=== PATIENT | male | born 1955 | race Caucasian/White ===

== ENCOUNTER → 2017-07-26 | Day surgery (SDC) | payer OTHER ==
[~2017-07-26] MED LIST: BUPIVACAINE HCL PF 0.25% 30 ML VIAL ONE; BUPIVACAINE HCL PF 0.75% 30 ML VIAL ONE; LACTATED RINGER'S 1000 ML INJ 1,000 ML ONE; LIDOCAINE 1.5%/EPINEPHrine 1:200,000 PF SOLN 30 ML AMP ONE; MEPERIDINE HCL 25 MG/ML VIAL ONE; MIDAZOLAM HCL 5 MG/ML VIAL (1 ML) ONE; MORPHINE SULFATE 4 MG/ML INJ ONE; ONDANSETRON HCL 4 MG/2 ML VIAL IV PUSH ONE; PROPOFOL 200 MG/20 ML AMP IV ONE; ceFAZolin 2 GM PREMIX 50 ML ONE
--- NOTE | 2017-07-26 14:50 | MP ---
cc: Charles Morris DPM DATE OF OPERATION: 07/26/2017 PREOPERATIVE DIAGNOSIS: Right Achilles tendon rupture. POSTOPERATIVE DIAGNOSIS: Right Achilles tendon rupture. PROCEDURE PERFORMED: Repair of right Achilles rupture with graft. ANESTHESIA: General with popliteal block. POSITION: Prone. ESTIMATED BLOOD LOSS: Less than 30 mL MATERIALS USED: One 5 cm x 2.5 cm Graft Jacket and a FiberWire from [employer]. COMPLICATIONS: None. DISPOSITION: Discharge home once stable per same day surgery criteria. JUSTIFICATION FOR PROCEDURE: This is a pleasant 62-year-old male who has a history of an injury, sustaining an Achilles tendon rupture. The patient had a greater than 1 cm deficit. We opted to move forward with a repair of the Achilles tendon to allow the high chance of return to activity. No guarantees were given or implied regarding the outcome. The patient understood being a diabetic, he may have slow healing, higher chance of wound dehiscence. PROCEDURE IN DETAIL: Under mild sedation, the patient was brought to the operating room, placed on the operating table in the supine position. Following the induction of general anesthesia, the patient was then positioned in the prone position. The right lower extremity was scrubbed, prepped and draped in the usual aseptic fashion. The foot, ankle and leg was elevated, exsanguinated, and the previously placed right mid calf tourniquet was inflated to 250 mmHg. A posteromedial incision was made along the Achilles tendon. This was an approximately 15 cm incision. Sharp and blunt dissection was carried down through adipose. Venous structures that were encountered were bovied and ligated as deemed necessary. Sharp and blunt dissection was carried down deep to the tendon sheath. Peritenon level was identified. There was noted to be a full-thickness rupture of the Achilles tendon. The tendon hematoma was curettaged. There was noted to be frayed edges of the proximal aspect of the Achilles tendon. This was repaired utilizing multiple Vicryl interrupted suture style technique preparing for a FiberWire. At this time, a modified Krackow suturing technique took place of the proximal tail of the Achilles and then it was held under approximately 10-15 pounds of tension to lengthen out the muscle belly before repair for 5 minutes. Next, the distal tail of the Achilles was then sutured utilizing FiberWire in a modified Krackow [place] technique and then reanastomosed to the proximal stump. An onlay graft jacket was then sutured under tension to further augment the Achilles repair. The aponeurosis of the flexor hallucis longus muscle belly was identified and a linear incision was made, allowing for room for the Achilles tendon upon closure within the posterior ankle space to prevent any kind of posterior pressure on the skin, preventing a wound dehiscence. The Achilles tendon was then stressed and there were no signs of rupture, no gapping at the repair site. The graft jacket was sutured in place utilizing Vicryl of the posterior Achilles area proximal to the rupture and distal. The peritenon was identified and repaired utilizing Vicryl. Deep dermis was repaired utilizing Vicryl. Skin was closed utilizing nylon. A bulky bandage placed. Upon relieving the tourniquet, there was a prompt hyperemic response to all digits without any delayed capillary fill time. The patient received a Mota compressive dressing and a posterior splint and a sugar-tong splint. The patient was then placed on the operative gurney in the supine position and extubated uneventfully. The patient is able for range of motion of the knee and hip. He is able to wiggle toes. The patient will be nonweightbearing. Follow up in the office within 3-5 days. WILFREDO Cochran , 02:21 PM , 02:48 PM
== END | disposition home or self-care (01) ==
LOC: ESDC 10:36
PROVIDERS: ATTEND Podiatrist Foot & Ankle Surgery
DX: S86.011A Strain of right Achilles tendon, initial encounter (principal); E11.9 Type 2 diabetes mellitus without complications
CPT/HCPCS: 01472; 15275; 27652; 64445; 76942; 82948; J0690; J2175; J2250; J2270; J2405; J3010; J7120; Q4107